=== PATIENT | female | born 2000 | race Caucasian/White ===

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

== ENCOUNTER → 2020-01-14 12:27 | Outpatient (CLI) | payer OTHER, SELFPAY ==
[2020-01-14 13:03] LABS: Bacteria Urine None Seen
[2020-01-14 13:35] LABS: Appearance Urine UA CLEAR; Bilirubin Urine UA NEGATIVE (NEGATIVE); Color Urine UA YELLOW; Glucose Urine UA NEGATIVE (Negative); Ketones Urine UA NEGATIVE (NEGATIVE); Leukocyte Esterase Urine UA NEGATIVE (NEGATIVE); Nitrite Urine UA NEGATIVE (Negative); Occult Blood Urine UA TRACE-INTACT (Negative); Protein Urine UA NEGATIVE (Negative); Specific Gravity Urine UA <=1.005 (1.000-1.035); Urobilinogen Urine UA 0.2 E.U./dL (0.2)
[2020-01-14 13:37] LABS: pH Urine UA 6.5 (4.5-8.0)
[2020-01-14 13:59] LABS: Culture Indicated Urine Cult Not Indicated; RBC Urine 0-1/HPF (0-5/HPF); Squamous Epithelial Cell Urine 0-1 /HPF (0-5/HPF); WBC Urine 1-5/HPF (0-5/HPF)
== END ==
PROVIDERS: PCP Family Medicine; Referring Provider Family Medicine; Visit Provider Family Medicine
DX: R30.0 Dysuria (principal); R35.0 Frequency of micturition; R39.15 Urgency of urination
CPT/HCPCS: 81001

== ENCOUNTER → 2020-02-05 12:36 | Outpatient (CLI) | payer OTHER, SELFPAY | PROVIDERS: PCP Family Medicine; Visit Provider Family Medicine | DX: R30.0 Dysuria (principal) | CPT/HCPCS: 87086 ==

== ENCOUNTER → 2020-10-05 10:09 | Outpatient (CLI) | payer OTHER, SELFPAY ==
[2020-10-05 10:56] LABS: Add Manual Diff / Slide Review NO; Basophils Absolute Auto 0 /uL (0-100); Basophils Percent Auto 0.7 % (0-2); Eosinophils Absolute Auto 100 /uL (0-450); Hematocrit 36.6 % (36-46); Hemoglobin 12.4 g/dL (12.0-16.0); Lymphocytes Absolute Auto 1600 /uL (1100-4500); Lymphocytes Percent Auto 23.9 % (25-40); Mean Corpuscular HGB Conc 33.8 % (30-36); Mean Corpuscular Hemoglobin 30.4 PG (26-34); Monocytes Absolute Auto 400 /uL (0-900); Monocytes Percent Auto 6.3 % (3-14); Neutrophils Absolute Auto 4600 /uL (1500-7000); Neutrophils Percent Auto 68.1 % (50-75); Platelet Count 210 X10^3/uL (150-400); Red Blood Cell Count 4.07 X10^6/uL (4.0-5.2); Red Cell Distribution Width 12.4 % (11.6-14.8); White Blood Cell Count 6.8 X10^3/uL (4.5-11.0)
[2020-10-05 10:59] LABS: Appearance Urine UA CLEAR; Bilirubin Urine UA NEGATIVE (NEGATIVE); Color Urine UA YELLOW; Glucose Urine UA NEGATIVE (Negative); Ketones Urine UA NEGATIVE (NEGATIVE); Leukocyte Esterase Urine UA NEGATIVE (NEGATIVE); Nitrite Urine UA NEGATIVE (Negative); Occult Blood Urine UA TRACE-INTACT (Negative); Protein Urine UA NEGATIVE (Negative); Specific Gravity Urine UA >=1.030 (1.000-1.035); Urobilinogen Urine UA 0.2 E.U./dL (0.2)
[2020-10-05 16:28] LABS: HIV 1 & 2 Ab/Ag 4th Gen Combo NEGATIVE (NEGATIVE); Hep C Virus Ab w/Reflex Quant NEGATIVE s/c (NEGATIVE); Hepatitis B Surface Antigen NEGATIVE s/c (NEGATIVE); Rubella Antibody IgG 23.5 IU/mL (>15)
[2020-10-06 09:23] LABS: RPR Screen Non Reactive (Non Reactive); Varicella IgG Antibody 556 index (Immune >165)
== END ==
PROVIDERS: PCP Family Medicine; Referring Provider Family Medicine; Visit Provider Family Medicine
DX: Z34.81 Encounter for supervision of other normal pregnancy, first trimester (principal)
CPT/HCPCS: 36415; 80055; 81003; 86787; 86803; 86850; 86900; 86901; 87077; 87086; 87147; 87389

== ENCOUNTER → 2020-10-20 16:42 | Outpatient (CLI) | payer OTHER, SELFPAY | PROVIDERS: PCP Family Medicine; Referring Provider Family Medicine; Visit Provider Family Medicine | DX: Z34.90 Encounter for supervision of normal pregnancy, unspecified, unspecified trimester (principal) | CPT/HCPCS: 87086 ==

== ENCOUNTER → 2020-11-27 10:17 | Outpatient (CLI) | payer OTHER, SELFPAY ==
[2020-12-01 20:03] LABS: AFP, Serum 35.5 ng/mL (.); Calc Gestational Age EDD (.); Estriol, Free 1.02 ng/mL (.); Inhibin A, Dimeric 226.64 pg/mL (.); Inhibin A, MoM 1.32 (.); Maternal Ethnicity Caucasian (.); Maternal Weight 133 lbs (.); Number of Fetuses No (.); OSBR Risk 1 IN 10000 (.); Results Report (.); Test Results *Screen Negative* (.); hCG, MoM 1.56 (.); hCG, Serum 69606 mIU/mL (.)
== END ==
PROVIDERS: PCP Family Medicine; Referring Provider Family Medicine; Visit Provider Family Medicine
DX: Z34.90 Encounter for supervision of normal pregnancy, unspecified, unspecified trimester (principal)
CPT/HCPCS: 36415; 82105; 82677; 84702; 86336

== ENCOUNTER → 2020-12-18 12:12 | Outpatient (CLI) | payer OTHER, SELFPAY ==
--- NOTE | 2020-12-18 12:13 | DI.US.S_ITS ---
PROCEDURE: US OB >= 14 WEEKS FETUS INDICATIONS: anatomy screening OUTSIDE/PRIOR DATING DATA: Last menstrual period (LMP): 08/08/2020. LMP-based estimated date of delivery (MARS): 05/15/2021 . First dating scan (date and location): 12/10/2020 . Estimated date of delivery (MARS) from first dating scan: 05/14/2021 . TECHNIQUE: Real-time scanning was performed of the fetus, with image documentation and biometric measurements. Endovaginal scanning: No COMPARISON: None. FINDINGS: General: A single living intrauterine gestation is present. Presentation: Variable. Placenta: Placental position is anterior , without previa. Amniotic fluid index: 153 cm, normal range is 5-24 cm. heart rate: 3.6 beats per minute. Maternal cervical canal: 3.6 cm long. Normal lower limit is 2.5 cm. biometrics: Biparietal diameter: 19 weeks 2 days Head circumference: 18 weeks 4 days Abdominal circumference: 18 weeks 6 days Femur length: 19 weeks Estimated gestational age from initial scan: not applicable. Composite gestational age from present scan: 19 weeks Estimated weight and percentile: 263 g; 48th percentile Measurement variability for biometric dating: +/- 7 days from 14 weeks to 15 weeks 6 days gestation, +/- 10 days from 16 weeks to 21 weeks 6 days gestation, +/- 2 weeks from 22 weeks to 27 weeks 6 days gestation, +/- 3 weeks for 28 weeks gestation or later. weight reference: 4500 g or EFW >90/95% is considered macrosomia or large for gestational age. EFW <10% is small for gestational age. EFW 5% or less is considered intra-uterine growth restriction. Anatomic survey: Neuro: Ventricles are non-dilated at less than 10 mm. Cisterna magna is normal at 3-11 mm. Cerebellum is normal in size and morphology. Small choroid plexus cyst. Nuchal skin fold: Normal at less than 6 mm between 14-21 weeks gestational age. Face: Nose and lips, facial profile are normal. Spine: No evidence for spina bifida. Heart: 4-chambered heart is present, with normal ventricular outflow tracts. Diaphragm: Diaphragm is intact. Stomach: Left-sided stomach is present. Kidneys: No hydronephrosis. Normal is less than 5 mm in 2nd trimester, less than 7 mm in 3rd trimester. Cord: 3-vessel cord has orthotopic insertion. Bladder: Normal in size. Extremities: All 4 extremities identified. IMPRESSION: 1. 19 week 0 day single living IUP. 2. Small choroid plexus cyst; otherwise normal anatomic survey. Dictated by: Spike MCGILL Interpreted: Zhane Chatman MD on 12/18/2020 at 14:58 Transcribed by: VARSHA on 12/23/2020 at 15:55 Approved by: Ata Vasques M.D. on 12/23/2020 at 16:56
== END ==
PROVIDERS: PCP Family Medicine; Referring Provider Family Medicine; Visit Provider Family Medicine
DX: Z36.89 Encounter for other specified antenatal screening (principal); Z3A.19 19 weeks gestation of pregnancy
CPT/HCPCS: 76811

== ENCOUNTER → 2021-02-19 12:08 | Outpatient (CLI) | payer OTHER, SELFPAY ==
[2021-02-19 14:11] LABS: Add Manual Diff / Slide Review NO; Basophils Absolute Auto 0 /uL (0-100); Basophils Percent Auto 0.2 % (0-2); Eosinophils Absolute Auto 100 /uL (0-450); Eosinophils Percent Auto 0.9 % (2-4); Hematocrit 33.2 % (36-46); Hemoglobin 11.3 g/dL (12.0-16.0); Lymphocytes Absolute Auto 1400 /uL (1100-4500); Lymphocytes Percent Auto 16.4 % (25-40); Mean Corpuscular HGB Conc 34.1 % (30-36); Mean Corpuscular Hemoglobin 31.4 PG (26-34); Mean Corpuscular Volume 92.1 fL (80-100); Monocytes Absolute Auto 500 /uL (0-900); Monocytes Percent Auto 5.3 % (3-14); Neutrophils Absolute Auto 6500 /uL (1500-7000); Neutrophils Percent Auto 77.2 % (50-75); Platelet Count 185 X10^3/uL (150-400); Red Blood Cell Count 3.61 X10^6/uL (4.0-5.2); Red Cell Distribution Width 12.7 % (11.6-14.8); White Blood Cell Count 8.4 X10^3/uL (4.5-11.0)
[2021-02-19 14:30] LABS: GTT (PREG) 1 Hour PP 50gm Dose 136 mg/dL (76-139)
== END ==
PROVIDERS: PCP Family Medicine; Referring Provider Family Medicine; Visit Provider Family Medicine
DX: Z34.90 Encounter for supervision of normal pregnancy, unspecified, unspecified trimester (principal)
CPT/HCPCS: 36415; 82950; 85025

== ENCOUNTER 2021-04-22 17:55 | Outpatient (CLI) | payer OTHER, SELFPAY ==
--- NOTE | 2021-04-22 18:39 | P.TNLD_ITS ---
Visit Information Visit Information Date of evaluation: 04/22/21 Primary OB Provider: Carly Law On-call OB Provider: Alejandra Walters Reason for Evaluation: Yes pre-term labor Comments/Additional reasons for admission: 20YO @36wks6 days here for evaluation of low back pain. Has been feeling pain come and go since waking with it at 0500 this morning. +FM. No vaginal bleeding or leaking of fluid. Routine care with . GBS positive. Vital Signs Vital Signs: BP: 118/71mmHg, HR 75bpm, T 36.7C Temoral [facility] Medical History Adopted Anxiety No chronic problems Scoliosis Shoulder pain, bilateral (~12/2019) Surgical History [place] teeth extracted (~2018) Family History Mother Alcoholic Heavy smoker Liver problem Grandfather Diabetes mellitus Family/Other Cancer Grandmother Diabetes mellitus Social History marital status: household members: spouse lives independently: Yes caregiver/support person: No housing: house pets and animals: Yes (X 2 Dogs: safe/aware. 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 ) current occupational exposures/hazards: No Previous occupational history: animal caregiver/Day care special sonya needs: No seatbelt use: always do you feel safe at home: Yes Smoking Status: Never smoker second hand exposure: No alcohol intake: never substance use type: does not use during the past year weight has: remained stable well-balanced diet: daily or most days daily servings fruits/ve or more times/day caffeine: No eating out: rarely or never Type(s) of exercise: regular exercise (Gym workouts, treadmill x 30 min, 3-4 days a week. ) and resistance training frequency: 3-4 times per week duration: 30-45 minutes/day Review of Systems Review of Systems ROS: Yes All systems reviewed with the patient and are negative except as otherwise documented Exam Vital Signs (past 8 hours): see above Presentation: vertex Other: 1.5cm/50%/-2, per RN Evaluation Evaluation Baseline heart rate: 135 Variability: Moderate (11-25) monitor accelerations: Present Monitor Decelerations: Absent Contraction Frequency (minutes): 4 Uterine Contraction Intensity: Mild Category of Tracing: Reactive Status: Category l Cervical dilation (cm): 1.5 Cervical effacement (%): 50 station: -2 Diagnosis, Plan/Disposition Final Diagnosis (1) False labor before 37 completed weeks of gestation: Status: Acute Plan/Disposition Plan: Counseled on contractions with explanation that what she is feeling in her back are mild uterine contractions. Reassurance given for late outcomes. Recommend warm bath and time at home. Encouraged her to call and come back if contractions worsen or persist and she is unable to sleep. Routine Labor precautions reviewed. OB Disposition: home
== END 2021-04-22 18:53 | disposition home or self-care (01) ==
LOC: LABOR 18:50 → OB 04-23 08:54
PROVIDERS: PCP Family Medicine; Referring Provider Obstetrics & Gynecology; Visit Provider Obstetrics & Gynecology
DX: O47.03 False labor before 37 completed weeks of gestation, third trimester (principal); Z3A.37 37 weeks gestation of pregnancy
CPT/HCPCS: 59025; G0378; G0379

== ENCOUNTER 2021-05-15 10:30 | Outpatient (CLI) | payer OTHER, SELFPAY | END 2021-05-15 11:35 | disposition home or self-care (01) | LOC: OB 05-17 09:20 | PROVIDERS: PCP Family Medicine; Referring Provider Family Medicine; Visit Provider Family Medicine | DX: O47.1 False labor at or after 37 completed weeks of gestation (principal); O48.0 Post-term pregnancy; Z3A.40 40 weeks gestation of pregnancy | CPT/HCPCS: 59025; G0378; G0379 ==

== ENCOUNTER 2021-05-17 14:36 | Observation (INO) | payer OTHER, SELFPAY ==
--- NOTE | 2021-05-17 15:46 | PM.OBTRLD ---
Visit Information Visit Information Date of evaluation: 05/17/21 Primary OB Provider: Carly Law Reason for Evaluation: Yes rule out labor Comments/Additional reasons for admission: 20yo at 40w3d here due to regular contractions. Pt reports contractions starting last night, increasing in intensity this afternoon again. Now every 5 minutes. No LOF or vaginal bleeding. She is feeling her baby move regulalry. [facility] Medical History (Updated 05/17/21 @ 15:51 by Carly Law MD) Adopted Anxiety Scoliosis Shoulder pain, bilateral (~12/2019) Surgical History (Updated 04/27/21 @ 09:55 by Carly Law MD) [place] teeth extracted (~2018) Family History Mother Alcoholic Heavy smoker Liver problem Grandfather Diabetes mellitus Family/Other Cancer Grandmother Diabetes mellitus Social History marital status: household members: spouse lives independently: Yes caregiver/support person: No housing: house pets and animals: Yes (X 2 Dogs: safe/aware. 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 ) and resistance training frequency: 3-4 times per week duration: 30-45 minutes/day Evaluation Evaluation Baseline heart rate: 120 Variability: Moderate (11-25) monitor accelerations: Present Monitor Decelerations: Absent Contraction Frequency (minutes): 5 Category of Tracing: Reactive Cervical dilation (cm): 4 Cervical effacement (%): 90 station: -1 Diagnosis, Plan/Disposition Final Diagnosis (1) Labor, prolonged latent phase: Status: Acute Plan/Disposition Plan: 20yo at 40w3d here for contractions. Significant cervical change since 2 days ago, but none since clinic a few hours ago. Appears to be in prolonged latent phase. Discussed with patient staying for longer monitoring vs going home, prefers to go home. Stable for d/c home with return precautions discussed. OB Disposition: home
== END 2021-05-17 16:02 | disposition home or self-care (01) ==
PROVIDERS: Admitting Provider Family Medicine; PCP Family Medicine; Referring Provider Family Medicine; Visit Provider Family Medicine
DX: O63.0 Prolonged first stage (of labor) (principal)
CPT/HCPCS: 59025; G0378; G0379

== ENCOUNTER 2021-05-17 19:16 | Inpatient (IN) | payer OTHER, SELFPAY ==
[2021-05-17] MEDS: LACTATED RINGERS 1,000 ML 100 ML IV (20:35)
[2021-05-17] MEDS: PENICILLIN G POTASSIUM 5,000,000 UNIT in DEXTROSE 5% IN WATER 250 ML IV (20:40)
[2021-05-17 21:17] LABS: Add Manual Diff / Slide Review NO; Basophils Absolute Auto 100 /uL (0-100); Basophils Percent Auto 0.3 % (0-2); Eosinophils Absolute Auto 0 /uL (0-450); Eosinophils Percent Auto 0.1 % (2-4); Hematocrit 37.8 % (36-46); Hemoglobin 12.8 g/dL (12.0-16.0); Lymphocytes Absolute Auto 1200 /uL (1100-4500); Lymphocytes Percent Auto 6.9 % (25-40); Mean Corpuscular Volume 91.2 fL (80-100); Monocytes Absolute Auto 700 /uL (0-900); Monocytes Percent Auto 3.9 % (3-14); Neutrophils Absolute Auto 15000 /uL (1500-7000); Neutrophils Percent Auto 88.8 % (50-75); Platelet Count 214 X10^3/uL (150-400); Red Blood Cell Count 4.15 X10^6/uL (4.0-5.2); Red Cell Distribution Width 12.9 % (11.6-14.8); White Blood Cell Count 16.9 X10^3/uL (4.5-11.0)
[2021-05-17 21:22] VITALS: BP 138/81
--- NOTE | 2021-05-17 22:02 | PM.AN.REGBLK ---
Regional Block Pre-procedure Procedure: Continuous Lumbar Epidural for L&D Attending OB provider: Carly Law PMH/ROS narrative: term labor, no complications ASA Class: II Labs: Hct 37.8 % (36-46) 05/17/21 21:08 Plt Count 214 X10^3/uL (150-400) 05/17/21 21:08 Medications: Current Medications Generic Name Dose Route Start Last Admin Trade Name Freq PRN Reason Stop Dose Admin Calcium Carbonate 1,000 mg 05/17/21 20:17 Calcium Carbonate 500 Mg Tab PO Q2HR PRN Dyspepsia Carboprost Tromethamine 250 mcg 05/17/21 20:17 Carboprost 250 Mcg/Ml Ampul IM Q90M PRN Bleeding Diphenhydramine HCl 25 mg 05/17/21 21:22 Diphenhydramine 50 Mg/Ml Vial IV Q10M PRN Pruritis Fentanyl 50 mcg 05/17/21 20:17 Fentanyl 100 Mcg/2 Ml Inj IV Q1H PRN Pain, Moderate (4-6) Penicillin G Potassium 3,000,000 unit in 50 mls @ 100 mls/hr 05/18/21 00:00 Penicillin G Potassium IV Q4H JAYESH Lactated Ringer's 1,000 mls @ 100 mls/hr 05/17/21 20:30 Lactated Ringers IV CONT JAYESH Oxytocin/Lactated Ringer's 30 unit in 500 mls @ 200 mls/hr 05/17/21 20:17 Oxytocin Premix IV CONT PRN Bleeding Protocol Oxytocin/Lactated Ringer's 30 unit in 500 mls @ 3 mls/hr 05/17/21 20:30 Oxytocin Premix IV TITRATE JAYESH Protocol 3 MILLIUNIT/MIN Tranexamic Acid 1,000 mg/ 100 mls @ 200 mls/hr 05/17/21 20:17 Sodium Chloride IV NOW PRN Bleeding FENT 2MCG/ML BUPIV 0.125% EPI 200 mcg in 100 mls @ 6 mls/hr 05/17/21 21:30 Fentanyl/Bupiv/Ns 2mcg/Ml - 0.125% EPIDURAL CONT JAYESH Methylergonovine Maleate 0.2 mg 05/17/21 20:17 Methylergonovine 0.2 Mg/Ml Vial IM NOW PRN Bleeding Methylergonovine Maleate 0.2 mg 05/17/21 20:17 Methylergonovine 0.2 Mg Tablet PO Q6HR PRN Heavy Bleeding Misoprostol 800 mcg 05/17/21 20:17 Misoprostol 200 Mcg Tablet HI NOW PRN Bleeding Misoprostol 1,000 mcg 05/17/21 20:17 Misoprostol 200 Mcg Tablet HI NOW PRN Bleeding Misoprostol 400 mcg 05/17/21 20:17 Misoprostol 200 Mcg Tablet SL NOW PRN Bleeding Nalbuphine HCl 2.5 mg 05/17/21 21:22 Nalbuphine 20 Mg/Ml Ampul IV Q10M PRN Pruritis Naloxone HCl 0.2 mg 05/17/21 20:17 Naloxone 0.4 Mg/Ml Vial IV Q2MIN PRN Opiate Reversal Ondansetron HCl 4 mg 05/17/21 20:17 Ondansetron 4 Mg/2 Ml Inj IV Q4HR PRN Nausea And Vomiting Oxytocin 10 unit 05/17/21 20:17 Oxytocin 10 Unit/Ml Vial IM NOW PRN Bleeding Allergies: Allergies Allergy/AdvReac Type Severity Reaction Status Date / Time No Known Drug Allergies Allergy Verified 02/24/20 13:24 Procedure Insertion date: 05/17/21 Insertion time: 21:36 Prep/Local: betadine x3 and 1% lidocaine Interspace: L3-4 Patient position: sitting Needle: 18 gauge Hustead (CSE: 27g Pencan through Hustead, clear CSF, 1mL 0.25% bupiv) JULIA at (cm): 4 Catheter placed at SKIN (cm): 10 Catheter in SPACE (cm): 6 Insertion: No CSF, No Blood, No Paresthesia with insertion, No Paresthesia with injection and No Test dose reaction Initial Medications TEST DOSE time: 21:39 TEST DOSE: 1.5% lidocaine with epinephrine 1:200k (mL): 3 BOLUS DOSE time: 21:52 BOLUS DOSE (mL): 3 BOLUS DOSE med: other (infusate) Infusion Initial rate (mL/hr): 8 Post-procedure Anesthesia time START: 21:30 Anesthesia time END: 08:09 Post-procedure Anesthesia Assessment: Yes CV function: HR/BP stable, Yes Resp function: RR/sat/airway adequate, Yes Mental status appropriate and No Anesthesia complications
[2021-05-18] MEDS: PENICILLIN G POTASSIUM 3,000,000 UNIT/50 ML FROZ.PIGGY 100 UNIT IV ×2 (01:40→05:44)
[2021-05-18] MEDS: FENT 2MCG/ML BUPIV 0.125% EPI 200 MCG/100 ML PLAST..BAG 6 MCG EPIDURAL (03:05)
[2021-05-18 03:56] LABS: COVID19 - ADMIT (NP swab/PCR) Negative (Negative)
[2021-05-18] MEDS: OXYTOCIN PREMIX 30 UNIT/500 ML PLAST..BAG 200 UNIT IV (08:11)
[2021-05-18] MEDS: miSOPROStoL 200 MCG TABLET 1000 MCG PR (08:19)
[2021-05-18] MEDS: METHYLERGONOVINE 0.2 MG/ML VIAL IM (08:20)
[2021-05-18] MEDS: CARBOPROST 250 MCG/ML AMPUL IM (08:23)
[2021-05-18] MEDS: DIPHENOXYLATE/ATROP 2.5/0.025 TABLET 2 EACH PO (09:42)
[2021-05-18] MEDS: CEFAZOLIN 1 GM VIAL 2 GM IV (09:42)
[2021-05-18] MEDS: CALCIUM CARBONATE 500 MG TAB 1000 MG PO (09:42)
[2021-05-18] MEDS: LANOLIN OINT 7 GM 1 APPLIC TOP ×2 (10:12→21:54)
[2021-05-18] MEDS: DERMOPLAST SPRAY 20% 60 ML 1 SPRAY TOP ×2 (10:12→21:53)
[2021-05-18] MEDS: PRENATAL VIT,CALC/IRON/FOLIC 1 TABLET 1 TAB PO (10:12)
[2021-05-18] MEDS: IBUPROFEN 600 MG TABLET PO ×3 (10:12→22:21)
[2021-05-18] MEDS: ACETAMINOPHEN 325 MG TABLET 650 MG PO ×2 (14:18→22:20)
--- NOTE | 2021-05-18 14:22 | P.HPOB_ITS ---
OB HPI Date/Time Date of admission: 05/17/21 Date Patient Seen: 05/18/21 Time Patient Seen: 07:30 History of Present Condition Chief complaint: CONTRACTIONS : 1 Para: 0 Estimated Date of Delivery: 05/14/21 Estimated Gestational Age (weeks): 40w4d Narrative: Nicki Ambrose is a 20 year old at 40w4d here with regular painful contractions. Pt reports contractions now 5 minutes apart. No vaginal bleeding or LOF. She is feeling her baby move regularly. The pt had no complications with her . Overnight, the pt progressed with SROM of clear fluid. Currently fully dilated and ready to push. History of Present care: good care, initiated at week # (7) and pounds weight gain (38) Dating criteria: LMP confirmed by 1st trimester US Ultrasounds: normal 1st trimester US and normal mid trimester US Obstetrical complications: none Medical complications: none Preadmission Labs Blood type: O (+) positive -: Antibody screen: negative, GBS status: positive, HBsAG: negative, HIV: negative and RPR/VDLR: negative -: Rubella: immune and Varicella: immune HCT: 33.2 HCAB: negative Quad screen: Normal 1 hr GTT: 136 Evaluation Evaluation Baseline heart rate: 130 Variability: Moderate (11-25) monitor accelerations: Present Monitor Decelerations: Variable (intermittent) Contraction Frequency (minutes): 4 Status: Category ll Cervical dilation (cm): 10 Cervical effacement (%): 100 station: +3 PFSH Medical History (Updated 05/17/21 @ 15:51 by Carly Law MD) Adopted Anxiety Scoliosis Shoulder pain, bilateral (~12/2019) Surgical History (Updated 04/27/21 @ 09:55 by Carly Law MD) [place] teeth extracted (~2018) Family History Mother Alcoholic Heavy smoker Liver problem Grandfather Diabetes mellitus Family/Other Cancer Grandmother Diabetes mellitus Social History marital status: household members: spouse lives independently: Yes caregiver/support person: No housing: house pets and animals: Yes (X 2 Dogs: safe/aware. 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 ) and resistance training frequency: 3-4 times per week duration: 30-45 minutes/day Meds Home Medications and Allergies Home Medications Medication Instructions Recorded Confirmed Type prenat.vits,maritza,[id number] 1 tab PO DAILY 10/01/20 05/18/21 History Allergies Allergy/AdvReac Type Severity Reaction Status Date / Time No Known Drug Allergies Allergy Verified 02/24/20 13:24 Exam Const General: cooperative, healthy appearing and comfortable Orientation: alert, awake and oriented x3 Resp Effort & Inspection: normal respiratory effort Auscultation: clear to auscultation bilaterally Cardio Rate: regular rate Rhythm: regular rhythm Heart Sounds: S1 normal, S2 normal and no murmurs GI Inspection: non-distended Palpation: soft and No tender Other: gravid Presentation: vertex Extrem General: no clubbing, cyanosis or edema Objective Labs Result Diagrams: 05/17/21 21:08 Labs: Laboratory Results - last 24 hr 05/17/21 05/17/21 05/18/21 21:08 21:08 02:55 WBC 16.9 H RBC 4.15 Hgb 12.8 Hct 37.8 MCV 91.2 MCH 31.0 MCHC 34.0 RDW 12.9 Plt Count 214 Neut % (Auto) 88.8 H Lymph % (Auto) 6.9 L [place] % (Auto) 3.9 Eos % (Auto) 0.1 L Baso % (Auto) 0.3 Neut # (Auto) 01128 H Lymph # (Auto) 1200 [place] # (Auto) 700 Eos # (Auto) 0 Baso # (Auto) 100 SARS-CoV-2 (PCR) Negative Blood Type O Positive Antibody Screen Negative Assessment and Plan Assessment and Plan Assessment and Plan narrative: 20yo at 40w4d here in active labor. GBS positive, received adequate GBS prophylaxis with penicillin already. Rh negative. SROM with clear fluid. - Expectant management, anticipate - GBS positive, continue penicillin prophylaxis - FHT reassuring - Epidural in place for pain control
--- NOTE | 2021-05-18 16:43 | PM.OBPRVD ---
Labor & Delivery Delivery date: 05/18/21 Intrapartal Events: None Cervical ripening method: none Induction method: none Delivery monitor: external FHT Route of delivery: Episiotomy description: None L&D Laceration Description: Labial Delivery repair: chromic Estimated blood loss (mL): 1,000 Anesthesia Type: Epidural Complications: hemorrhage Narrative: PROCEDURE: at 40w4d presented in active labor and was admitted to Labor and Delivery. The patient progressed through the 1st stage over 15 hours. Pain was controlled with an epidural. She had SROM with clear fluid present. The patient progressed through the 2nd stage over 30 minutes and delivered a viable female infant with APGARs 8/9 at 7:59am via without complications. Terminal meconium was noted after delivery. The perineum and vagina were inspected with left labial laceration repaired with 2-O Chromic. Pitocin was to be started for active management of the third stage of labor. The pt had significant vaginal bleeding after delivery. It was initially controlled with bimanual massage, but the uterus became atonic again after massage was stopped. The pt was given Methergine and rectal cytotec. There was some improvement in tone, with ongoing bimanual massage, but it would not maintain. Hemabate was then given, and the tone improved. After the bleeding stopped, it was noted that the pitocin had not actually been initiated through the IV, due to malfunction of the pump. It was then initiated. The pts bleeding remained appropriate. PREPROCEDURE DIAGNOSIS: Intrauterine at 40w4d GBS positive RH negative POSTPROCEDURE DIAGNOSIS: Intrauterine at 40w4d, delivered Same as preprocedure hemorrhage due to uterine atony Baby 1: Infant gender: Female Presentation: vertex Position: Left Occiput Anterior Placenta delivery description: Spontaneous Cord Vessel Description: 3 Vessels score (1 min): 8 score (5 min): 9 weight: 7 lb 8.813 oz Plan for aftercare: Routine care
[2021-05-18] MEDS: OXYCODONE IR 5 MG TABLET PO (22:22)
[2021-05-19] MEDS: OXYCODONE IR 5 MG TABLET PO (03:45)
--- NOTE | 2021-05-19 08:14 | PM.OBDS.1 ---
Discharge Providers Provider Date of admission: 05/17/21 19:16 Discharge Date: 05/19/21 Primary care physician: Carly Law MD Consults: 05/19/21 08:50 Consult to Supplemental Nurse Routine Comment: Discharge provider: Carly Law MD Summary Hospital Course Date Patient Seen: 05/19/21 Time Patient Seen: 08:00 Diagnoses: 40w4d gestation GBS positive Rh positive Hospital Course: The patient presented in active labor. She received an epidural for pain control. She received adequate GBS prophylaxis with penicillin. She progressed to complete without complications, and had a of a viable baby girl on 05/18/21 at 7:59am. A left labial laceration was repaired. The pt had a hemorrhage that was controlled with methergine, cytotec, hemabate, and pitocin along with prolonged bimanual massage. , there were no additional complications. At the time of discharge she was voiding, ambulating, and passing flatus without difficulty. Her lochia was decreasing appropriately. Her pain was well controlled. She was with good latch. She will f/u for her 6wk check. Peripartum Data Infant Delivery Method: Natural Vaginal Laceration Description: Labial Episiotomy description: None Procedures: Spontaneous vaginal delivery complications: uterine atony 1: Gender: Female Disposition of : home Status at Discharge Cognitive/behavioral status at discharge: oriented Functional status at discharge: independent ambulation Overall status at discharge: patient is progressing back to baseline Time Spent with Patient Time attestation: Total time spent providing and/or coordinating discharge services: Objective Labs Result Diagrams: 05/19/21 08:58 Exam Narrative Exam Narrative: Gen: NAD, sitting comfortably in bed, appears well CV: RRR, no murmurs Resp: clear to auscultation bilaterally Abd: soft, appropriately tender, fundus firm and below the umbilicus, nondistended Ext: no edema Discharge Plan Discharge Plan Patient Disposition: Home Discharge orders & Medications Prescriptions: Continued prenat.vits,maritza,[id number] Tablet 1 tab PO DAILY RF: 0 Follow up/Referrals: Carly Law MD [Primary Care Provider] - 6 Weeks (Appointment with on Saturday, June 30 at 10:00 am) Diet/Activity/Treatments Diet: Diet as Tolerated and Regular Skin/Wound/Dressing Care Report to your healthcare provider any signs of infection, such as:: chills, fever, increased pain and unusual drainage Visit Report/Discharge Packet Instructions: DI for Labor and Delivery, Vaginal Visit Report Forms: Patient Portal/API, Stroke Signs & Symptoms Discharge Data Primary Care Provider: Carly Law
[2021-05-19 09:11] LABS: Add Manual Diff / Slide Review NO; Basophils Absolute Auto 100 /uL (0-100); Basophils Percent Auto 0.3 % (0-2); Eosinophils Absolute Auto 100 /uL (0-450); Eosinophils Percent Auto 0.6 % (2-4); Hematocrit 32.2 % (36-46); Hemoglobin 10.9 g/dL (12.0-16.0); Lymphocytes Absolute Auto 2800 /uL (1100-4500); Lymphocytes Percent Auto 17.7 % (25-40); Mean Corpuscular HGB Conc 33.8 % (30-36); Mean Corpuscular Hemoglobin 31.3 PG (26-34); Mean Corpuscular Volume 92.4 fL (80-100); Monocytes Absolute Auto 700 /uL (0-900); Monocytes Percent Auto 4.1 % (3-14); Neutrophils Absolute Auto 12300 /uL (1500-7000); Neutrophils Percent Auto 77.3 % (50-75); Platelet Count 195 X10^3/uL (150-400); Red Blood Cell Count 3.49 X10^6/uL (4.0-5.2); Red Cell Distribution Width 13.1 % (11.6-14.8)
[2021-05-19] MEDS: IBUPROFEN 600 MG TABLET PO (09:11)
[2021-05-19] MEDS: PRENATAL VIT,CALC/IRON/FOLIC 1 TABLET 1 TAB PO (09:11)
[2021-05-19] MEDS: ACETAMINOPHEN 325 MG TABLET 650 MG PO (09:12)
[2021-05-19 10:25] VITALS: BP 98/54; PULSE 75; RESP 16; TEMP 37
== END 2021-05-19 14:21 | disposition home or self-care (01) | DRG 806 ==
PROVIDERS: Admitting Provider Obstetrics & Gynecology; PCP Family Medicine; Referring Provider Obstetrics & Gynecology; Visit Provider Obstetrics & Gynecology
DX: O48.0 Post-term pregnancy (principal); O72.0 Third-stage hemorrhage; Z37.0 Single live birth; O63.0 Prolonged first stage (of labor); O99.824 Streptococcus B carrier state complicating childbirth; O42.02 Full-term premature rupture of membranes, onset of labor within 24 hours of rupture; Z3A.40 40 weeks gestation of pregnancy; O77.0 Labor and delivery complicated by meconium in amniotic fluid; O70.0 First degree perineal laceration during delivery; Z20.822 Contact with and (suspected) exposure to COVID-19
CPT/HCPCS: 01967; 36415; 59025; 59050; 59400; 85025; 86850; 86900; 86901; 87635; C9803; G0378; G0379; J0690; J2210; J2540; J2590; S0191

== ENCOUNTER 2021-06-04 21:33 | Emergency (ER) | payer OTHER, SELFPAY ==
[2021-06-04 21:47] VITALS: BP 106/58; PULSE 70; RESP 20; TEMP 36.7; O2SAT 98; BMI 25.6
[2021-06-05 01:01] VITALS: BP 118/81; PULSE 60; RESP 17; O2SAT 99
[2021-06-05 01:03] LABS: Add Manual Diff / Slide Review NO; Basophils Absolute Auto 100 /uL (0-100); Basophils Percent Auto 1.1 % (0-2); Eosinophils Absolute Auto 200 /uL (0-450); Eosinophils Percent Auto 3.1 % (2-4); Hematocrit 39.9 % (36-46); Hemoglobin 13.2 g/dL (12.0-16.0); Lymphocytes Absolute Auto 1800 /uL (1100-4500); Mean Corpuscular Hemoglobin 30.5 PG (26-34); Mean Corpuscular Volume 92.3 fL (80-100); Monocytes Absolute Auto 400 /uL (0-900); Monocytes Percent Auto 5.4 % (3-14); Neutrophils Absolute Auto 4500 /uL (1500-7000); Neutrophils Percent Auto 64.4 % (50-75); Platelet Count 352 X10^3/uL (150-400); Red Blood Cell Count 4.33 X10^6/uL (4.0-5.2); Red Cell Distribution Width 12.3 % (11.6-14.8)
[2021-06-05 01:09] LABS: Alanine Aminotransferase 22 IU/L (<35); Albumin 4.7 g/dL (3.5-5.0); Albumin Globulin Ratio 1.6 (1.0-2.8); Alkaline Phosphatase 109 U/L (38-126); Aspartate Aminotransferase 25 IU/L (14-36); BUN Creatinine Ratio 19.7 (6-22); Bilirubin Total 0.5 mg/dL (0.2-1.3); Blood Urea Nitrogen 12 mg/dL (7-17); Calcium 9.9 mg/dL (8.4-10.2); Carbon Dioxide 26 mmol/L (22-32); Chloride 105 mmol/L (98-107); Estimated Glomerular Filt Rate > 60.0 mL/min (>60); Glucose 98 mg/dL (70-100); HEMOLYSIS 21 (0-50); Lipase 30 U/L (23-300); Potassium 4.2 mmol/L (3.4-5.1); Sodium 139 mmol/L (137-145); Total Protein 7.7 g/dL (6.3-8.2)
--- NOTE | 2021-06-05 03:04 | ED.GENADULT ---
HPI - General Adult General Chief complaint: Abdominal Pain Stated complaint: 2 WEEKS POST STOMACH PAIN Time Seen by Provider: 06/05/21 03:00 Source: patient Mode of arrival: Ambulatory Limitations: no limitations History of Present Illness HPI narrative: 20-year-old at almost 2 weeks presents with abdominal pain. She has noticed that it has been increasing over the last week at times so severe it almost feels like contractions. It is diffuse throughout her abdomen. She isn't describing dysuria or hematuria. She notes that her lochia has slowed to minimal spotting only. She has had no fevers no odors or unexpected discharge from her vagina. He is not complaining of chest pain or palpitations. She notes that she is eating and drinking well. Breast-feeding is also going well. She describes no significant headaches. Her last bowel movement was about 2 days ago, she states that this is not all that unusual for her Related Data Home Medications Medication Instructions Recorded Confirmed prenat.vits,martiza,[id number] 1 tab PO DAILY 10/01/20 05/18/21 Allergies Allergy/AdvReac Type Severity Reaction Status Date / Time No Known Drug Allergies Allergy Verified 06/04/21 21:47 Review of Systems Review of Systems Narrative: Remainder of complete review of systems is otherwise unremarkable except for that included in the HPI. Patient History Medical History Adopted Anxiety Scoliosis Shoulder pain, bilateral (~12/2019) Surgical History [place] teeth extracted (~2018) Family History Mother Alcoholic Heavy smoker Liver problem Grandfather Diabetes mellitus Family/Other Cancer Grandmother Diabetes mellitus Social History marital status: household members: spouse lives independently: Yes caregiver/support person: No housing: house pets and animals: Yes (X 2 Dogs: safe/aware. 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 ) current occupational exposures/hazards: No Previous occupational history: certified caregiver/Day care special sonya needs: No seatbelt use: always do you feel safe at home: Yes Smoking Status: Never smoker second hand exposure: No alcohol intake: never substance use type: does not use during the past year weight has: remained stable well-balanced diet: daily or most days daily servings fruits/ve or more times/day caffeine: No eating out: rarely or never Type(s) of exercise: regular exercise (Gym workouts, treadmill x 30 min, 3-4 days a week. ) and resistance training frequency: 3-4 times per week duration: 30-45 minutes/day Smoking Status: Never smoker Substance Use Type: does not use Exam Narrative Exam Narrative: General: Healthy appearing, in no acute distress. Able to give a complete and coherent history. Well-nourished well-developed HEENT: Moist mucous membranes, normal sclera with reactive pupils, Respiratory: Lungs are clear to auscultation, no wheezing no rales no rhonchi. Full and symmetrical air movement Cardiac: Regular rate and rhythm no murmurs no bruits Abdomen: Soft, nontender, good bowel tones, no flank pain Skin: Warm and dry, no rashes Neurologic: Grossly neurologically intact with no obvious asymmetries or abnormalities Extremities: No trauma, well perfused Psych: Cooperative, appropriate insight and affect Initial Vital Signs Initial Vital Signs: Vital Signs Temperature 98.0 F 06/04/21 21:47 Pulse Rate 70 06/04/21 21:47 Respiratory Rate 20 06/04/21 21:47 Blood Pressure 106/58 L 06/04/21 21:47 Pulse Oximetry 98 06/04/21 21:47 Course Orders Ordered: ED Orders 06/04/21 22:14 Complete Blood Count AUTO DIFF Stat Comprehensive Metabolic Panel Stat Lipase Stat Discontinued Medications Magnesium Citrate (Magnesium Citrate 300 Ml Solution) 300 ml PO NOW ONE Stop: 06/05/21 03:16 Vital Signs Vital signs: Vital Signs - 8 hr 06/04/21 21:47 06/05/21 01:01 Temperature 98.0 F Pulse Rate 70 60 Respiratory Rate 20 17 Blood Pressure 106/58 L 118/81 Pulse Oximetry 98 99 Medical Decision Making Lab Data Result diagrams: 06/05/21 00:49 06/05/21 00:49 Labs: Lab Results 06/05/21 06/05/21 Range/Units 00:49 00:49 WBC 7.0 (4.5-11.0) X10^3/uL RBC 4.33 (4.0-5.2) X10^6/uL Hgb 13.2 (12.0-16.0) g/dL Hct 39.9 (36-46) % MCV 92.3 (80-100) fL MCH 30.5 (26-34) PG MCHC 33.0 (30-36) % RDW 12.3 (11.6-14.8) % Plt Count 352 (150-400) X10^3/uL Neut % (Auto) 64.4 (50-75) % Lymph % (Auto) 26.0 (25-40) % [place] % (Auto) 5.4 (3-14) % Eos % (Auto) 3.1 (2-4) % Baso % (Auto) 1.1 (0-2) % Neut # (Auto) 4500 (9322-6814) /uL Lymph # (Auto) 1800 (7181-1402) /uL [place] # (Auto) 400 (0-900) /uL Eos # (Auto) 200 (0-450) /uL Baso # (Auto) 100 (0-100) /uL Sodium 139 (137-145) mmol/L Potassium 4.2 (3.4-5.1) mmol/L Chloride 105 (98-107) mmol/L Carbon Dioxide 26 (22-32) mmol/L BUN 12 (7-17) mg/dL Creatinine 0.61 (0.52-1.04) mg/dL Estimated GFR > 60.0 (>60) mL/min BUN/Creatinine Ratio 19.7 (6-22) Glucose 98 (70-100) mg/dL Calcium 9.9 (8.4-10.2) mg/dL Total Bilirubin 0.5 (0.2-1.3) mg/dL AST 25 (14-36) IU/L ALT 22 (<35) IU/L Alkaline Phosphatase 109 (38-126) U/L Total Protein 7.7 (6.3-8.2) g/dL Albumin 4.7 (3.5-5.0) g/dL Globulin 3.0 (1.7-4.1) g/dL Albumin/Globulin Ratio 1.6 (1.0-2.8) Lipase 30 (23-300) U/L Urine Dip Bedside Urine Glucose Negative Bedside Urine Bilirubin - Negative Bedside Urine Ketone - Negative Urine Specific [place] 1.030 Bedside Urine Occult Blood - Negative Bedside Urine pH 6.0 Bedside Urine Protein - Negative Bedside Urine Urobilinogen - Negative Bedside Urine Nitrite - Negative Bedside Urine Leukocytes - Negative Esterase Point of care testing: Urine Dip Bedside Urine Glucose Negative Bedside Urine Bilirubin - Negative Bedside Urine Ketone - Negative Urine Specific [place] 1.030 Bedside Urine Occult Blood - Negative Bedside Urine pH 6.0 Bedside Urine Protein - Negative Bedside Urine Urobilinogen - Negative Bedside Urine Nitrite - Negative Bedside Urine Leukocytes - Negative Esterase MDM Narrative Medical decision making narrative: 20-year-old 2 weeks . Intermittent colicky type abdominal pain. She does not note that breast-feeding makes it worse. She is not having abnormal vaginal discharge. There is no signs of infection or urinary tract infection. At this point most likely diagnosis is constipation. Given the fact that it has been building for a week other non related abdominal issues such as appendicitis or diverticulitis are less likely at this time. I do not suspect kidney stones. There is no sign of an acute surgical abdomen. Reviewed use of MiraLax to help clean out her bowels. She does have a follow-up appointment for her baby with there family physician in 2 days. She will review her abdominal pain at that time as well. At this time she is safe for discharge Discharge Plan Departure Patient Disposition: Home Clinical Impression: Abdominal pain Qualifiers: Abdominal location: generalized Qualified Code(s): R10.84 - Generalized abdominal pain Instructions: DI for Constipation Activity Restrictions/Additional Instructions: Thank you for coming in today Your blood work is very reassuring. There is no evidence of infection, kidney issues, bladder infection, complications with retained products of conception in your uterus or any life-threatening issues that would require hospitalization. Given that description of your pain and the timing, I suspect that constipation is playing a role in this. I sent you home with a bottle of magnesium citrate, this will full water into your colon and help you clean out your colon completely. If you find that your still having increasing pain after you have had a large bowel movement, then please talk with your primary care doctor. If your developing fevers or new symptoms, please feel free to return to the ER. Prescriptions: No Action prenat.vits,maritza,sks-siyk-bvqmi Tablet 1 tab PO DAILY RF: 0 Referrals: Carly Law MD [Primary Care Provider] -
[2021-06-05] MEDS: MAGNESIUM CITRATE 300 ML SOLUTION PO (03:22)
== END 2021-06-05 03:30 | disposition home or self-care (01) ==
PROVIDERS: Emergency Provider Emergency Medicine; PCP Family Medicine
DX: R10.9 Unspecified abdominal pain (principal)
CPT/HCPCS: 36415; 80053; 81003; 83690; 85025; 99283

== ENCOUNTER 2021-06-06 13:33 | Emergency (ER) | payer OTHER, SELFPAY ==
[2021-06-06 13:36] VITALS: BP 113/71; PULSE 82; RESP 20; TEMP 36.6; O2SAT 98
[2021-06-06] MEDS: ONDANSETRON 4 MG/2 ML INJ (13:51)
[2021-06-06 13:57] LABS: Add Manual Diff / Slide Review NO; Basophils Absolute Auto 100 /uL (0-100); Basophils Percent Auto 0.9 % (0-2); Eosinophils Absolute Auto 100 /uL (0-450); Eosinophils Percent Auto 2.2 % (2-4); Hematocrit 41.8 % (36-46); Lymphocytes Absolute Auto 1400 /uL (1100-4500); Lymphocytes Percent Auto 23.4 % (25-40); Mean Corpuscular HGB Conc 33.4 % (30-36); Mean Corpuscular Volume 92.9 fL (80-100); Monocytes Absolute Auto 300 /uL (0-900); Neutrophils Absolute Auto 4200 /uL (1500-7000); Neutrophils Percent Auto 68.5 % (50-75); Platelet Count 375 X10^3/uL (150-400); Red Cell Distribution Width 12.7 % (11.6-14.8); White Blood Cell Count 6.1 X10^3/uL (4.5-11.0)
[2021-06-06 14:13] LABS: Alanine Aminotransferase 28 IU/L (<35); Albumin 5.2 g/dL (3.5-5.0); Albumin Globulin Ratio 1.7 (1.0-2.8); Alkaline Phosphatase 122 U/L (38-126); Aspartate Aminotransferase 34 IU/L (14-36); BUN Creatinine Ratio 14.9 (6-22); Bilirubin Total 0.7 mg/dL (0.2-1.3); Blood Urea Nitrogen 10 mg/dL (7-17); Carbon Dioxide 19 mmol/L (22-32); Chloride 107 mmol/L (98-107); Estimated Glomerular Filt Rate > 60.0 mL/min (>60); Globulin 3.1 g/dL (1.7-4.1); Glucose 94 mg/dL (70-100); HEMOLYSIS 19 (0-50); Lipase 37 U/L (23-300); Potassium 4.8 mmol/L (3.4-5.1); Sodium 140 mmol/L (137-145); Total Protein 8.3 g/dL (6.3-8.2)
--- NOTE | 2021-06-06 15:16 | ED_ITS ---
HPI - Abdominal Pain General Chief Complaint: Abdominal Pain Stated Complaint: bad stomach pain Time Seen by Provider: 06/06/21 15:06 Source: patient Mode of arrival: Ambulatory Limitations: no limitations History of Present Illness HPI narrative: This is a 20-year-old female who comes to the emergency department with complaint of abdominal pain. Patient started having symptoms on Monday, continued to worsen and patient was seen here on for ride a with mostly left upper quadrant pain but sometimes also on the right. Patient has been afebrile, no chills. No nasal congestion or cold cough congestive type symptoms no chest pain or shortness of breath she has developed nausea today but has not had any vomiting. Patient was somewhat constipated given magnesium citrate and had significant amount of stool out and does not feel constipated any longer. She denies dysuria urgency or frequency. She is still having some vaginal bleeding as she is 3 weeks but has not appreciated any discharge or odor that is new or different. She denies any lower abdominal discomfort. Patient denies any back or flank pain. She is breast. She is otherwise healthy with no major medical issues. She had a vaginal delivery without complications. She has not any known allergies or prior surgeries. She has not had similar symptoms in the past. She has tried Tylenol and ibuprofen at home with minimal improvement. She finds herself more comfortable if she is curled up and finds herself more uncomfortable laying flat, backwards are when she is fully extended or when she is jumping or moving. Related Data Home Medications Medication Instructions Recorded Confirmed prenat.vits,maritza,[id number] 1 tab PO DAILY 10/01/20 05/18/21 Previous Rx's Medication Instructions Recorded ketorolac 10 mg tablet 10 mg PO Q6H PRN #10 tab 06/06/21 Allergies Allergy/AdvReac Type Severity Reaction Status Date / Time No Known Drug Allergies Allergy Verified 06/04/21 21:47 Review of Systems Review of Systems ROS Unobtainable: All systems reviewed & are unremarkable except as noted in HPI and below Patient History Medical History Adopted Anxiety Scoliosis Shoulder pain, bilateral (~12/2019) Surgical History [place] teeth extracted (~2018) Family History Mother Alcoholic Heavy smoker Liver problem Grandfather Diabetes mellitus Family/Other Cancer Grandmother Diabetes mellitus Social History marital status: household members: spouse lives independently: Yes caregiver/support person: No housing: house pets and animals: Yes (X 2 Dogs: safe/aware. 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 ) current occupational exposures/hazards: No Previous occupational history: caretaker resort/Day care special sonya needs: No seatbelt use: always do you feel safe at home: Yes Smoking Status: Never smoker second hand exposure: No alcohol intake: never substance use type: does not use during the past year weight has: remained stable well-balanced diet: daily or most days daily servings fruits/ve or more times/day caffeine: No eating out: rarely or never Type(s) of exercise: regular exercise (Gym workouts, treadmill x 30 min, 3-4 days a week. ) and resistance training frequency: 3-4 times per week duration: 30-45 minutes/day Smoking Status: Never smoker Substance Use Type: does not use Exam Narrative Exam Narrative: GENERAL: Alert and oriented x three, female in mild distress. HEENT: Head normocephalic, atraumatic, EOMI, pupils reactive, face symmetric, m oist mucous membranes NECK: Supple, full range of motion CARDIOVASCULAR: Regular rate and rhythm without murmurs, rubs or gallops. RESPIRATORY: Breath sounds equal bilaterally, no wheezes rales or rhonchi. ABDOMEN: Soft, mild left upper quadrant tenderness slightly on the right. No lower abdominal tenderness. Bowel sounds all 4 quadrants. No guarding or rebound, rigidity, no mass. Nondistended. : No CVA tenderness EXTREMITIES: Normal range of motion, no clubbing or edema. Neurovascularly intact NEUROLOGICAL: Cranial nerves II through XII grossly intact. Moving all extremities SKIN: Warm, dry, no petechiae, no rashes or lesions. Initial Vital Signs Initial Vital Signs: Vital Signs Temperature 97.8 F 06/06/21 13:36 Pulse Rate 82 06/06/21 13:36 Respiratory Rate 20 06/06/21 13:36 Blood Pressure 113/71 06/06/21 13:36 Pulse Oximetry 98 06/06/21 13:36 Course Orders Ordered: ED Orders 06/06/21 13:25 Urine Culture Stat 06/06/21 13:45 Complete Blood Count AUTO DIFF Stat Comprehensive Metabolic Panel Stat Lipase Stat Urine Microscopic Stat 06/06/21 15:37 CT abdomen pelvis w con Stat Discontinued Medications Ketorolac Tromethamine (Ketorolac 30 Mg/Ml Vial) 30 mg IV NOW ONE Stop: 06/06/21 15:38 Last Admin: 06/06/21 15:45 Dose: 30 mg Documented by: PAT Reevaluation(s) Reevaluation #1: Patient is feeling more comfortable she is sitting comfortably on the bed. We reviewed her labs and findings. We discussed doing a pelvic exam to evaluate for uterine infection but patient politely defers and she is really more tender in her upper abdomen than lower. We did review her urine shows some uric acid but do not see any obvious stones she does not have flank pain or changes as consistent with a kidney stone. She is supposed to follow-up with primary care tomorrow with her daughter and asked that she share her recent symptoms with her physician, her next follow-up is in 3 weeks. Time: 17:04 Vital Signs Vital signs: Vital Signs - 8 hr 06/06/21 13:36 06/06/21 15:55 Temperature 97.8 F Pulse Rate 82 61 Respiratory Rate 20 16 Blood Pressure 113/71 113/64 Pulse Oximetry 98 100 MDM - Abdominal Pain Lab Data Result diagrams: 06/06/21 13:45 06/06/21 13:45 Labs: Lab Results 06/06/21 06/06/21 06/06/21 Range/Units 13:45 13:45 13:45 WBC 6.1 (4.5-11.0) X10^3/uL RBC 4.50 (4.0-5.2) X10^6/uL Hgb 14.0 (12.0-16.0) g/dL Hct 41.8 (36-46) % MCV 92.9 (80-100) fL MCH 31.0 (26-34) PG MCHC 33.4 (30-36) % RDW 12.7 (11.6-14.8) % Plt Count 375 (150-400) X10^3/uL Neut % (Auto) 68.5 (50-75) % Lymph % (Auto) 23.4 L (25-40) % [place] % (Auto) 5.0 (3-14) % Eos % (Auto) 2.2 (2-4) % Baso % (Auto) 0.9 (0-2) % Neut # (Auto) 4200 (6221-6846) /uL Lymph # (Auto) 1400 (4545-0533) /uL [place] # (Auto) 300 (0-900) /uL Eos # (Auto) 100 (0-450) /uL Baso # (Auto) 100 (0-100) /uL Sodium 140 (137-145) mmol/L Potassium 4.8 (3.4-5.1) mmol/L Chloride 107 (98-107) mmol/L Carbon Dioxide 19 L (22-32) mmol/L BUN 10 (7-17) mg/dL Creatinine 0.67 (0.52-1.04) mg/dL Estimated GFR > 60.0 (>60) mL/min BUN/Creatinine Ratio 14.9 (6-22) Glucose 94 (70-100) mg/dL Calcium 10.0 (8.4-10.2) mg/dL Total Bilirubin 0.7 (0.2-1.3) mg/dL AST 34 (14-36) IU/L ALT 28 (<35) IU/L Alkaline Phosphatase 122 (38-126) U/L Total Protein 8.3 H (6.3-8.2) g/dL Albumin 5.2 H (3.5-5.0) g/dL Globulin 3.1 (1.7-4.1) g/dL Albumin/Globulin Ratio 1.7 (1.0-2.8) Lipase 37 (23-300) U/L Urine RBC 0-1/hpf (0-5/HPF) Urine WBC None seen (0-5/HPF) Uric Acid Crystals Moderate H (None) Amorphous Sediment 4+ Urine Bacteria Many (>30) H (None) Ur Culture Indicated? Culture not indicate Point of care testing: Point of Care Testing Test Results Negative Urine Dip Bedside Urine Glucose Negative Bedside Urine Bilirubin - Negative Bedside Urine Ketone - Negative Urine Specific [place] 1.030 Bedside Urine Occult Blood - Negative Bedside Urine pH 5.0 Bedside Urine Protein +/- 15 Bedside Urine Urobilinogen - Negative Bedside Urine Nitrite - Negative Bedside Urine Leukocytes - Negative Esterase Imaging Data CT scan - abdomen/pelvis: Radiologist's Impression: Launch?[address] [address] [address] Scan Report Signed Patient: Nicki Ambrose MR#: [id number] : 2000 Acct:[id number] Age/Sex: 20 / F Date of Service: 06/06/21 Loc: ED Accession Number: [id number] ?? Procedure: CT abdomen pelvis w con Ordering Provider: Megan Mendieta D.O. PROCEDURE:? CT ABDOMEN PELVIS W CON ? INDICATIONS:? 20-year-old female with left upper quadrant pain ? TECHNIQUE:? After the administration of intravenous contrast, axial sections acquired from the lung bases to the pubic symphysis.? Coronal and sagittal reformats were performed.? For radiation dose reduction, the following was used:? automated exposure control, adjustment of mA and/or kV according to patient size.? ? COMPARISON:? None. ? FINDINGS: ? Lower thorax: The lung bases are clear.? Heart size normal.? No hiatal hernia.? Small bibasilar pleural effusions noted. ? Liver:? Normal in size and attenuation. No contour deformity present. ? Biliary system:? No calcified cholelithiasis or pericholecystic inflammation. No intra or extrahepatic bile duct dilatation. ? Pancreas:? Unremarkable without mass or inflammation evident. ? Spleen:? Normal in size and density. ? Adrenals:? Normal morphology and density. ? Reproductive system:? uterus ? Urinary system:? Normal renal size and attenuation. No renal calculi, hydronephrosis, or solid mass present.? Urinary bladder unremarkable. ? Gastrointestinal system:? The bowel is unremarkable without evidence of bowel obstruction or inflammation. The stomach appears unremarkable. ? Appendix:? Normal appendix identified.? No evidence of appendicitis. ? Peritoneal spaces:? No mesenteric or retroperitoneal adenopathy.? No free air.? No free fluid.? ? Vasculature:? The IVC, aorta and iliac vasculature are unremarkable. ? Abdominal wall:? Abdominal wall intact without evidence of ventral or inguinal hernias. ? Musculoskeletal:? Normal bone mineralization.? No acute fractures.? ? IMPRESSION: ? 1. uterus.? Otherwise unremarkable CT abdomen and pelvis. ? ? Approved by: Justus Castro M.D. on 06/06/2021 at 15:30? [facility] Narrative Medical decision making narrative: 20-year-old female comes with complaint of abdominal pain who is 3 weeks . She has had upper pain. Particularly on the left. She was seen here several days ago told she is likely constipated had magnesium citrate and had quite a bit of stool after this. This was on Monday yesterday. She has not any more bowel movements since then and but has not had any other obstructive type symptoms. She does have some mild nausea today. She denies back or flank pain, no urinary symptoms she is still having some vaginal bleeding as she is 3 weeks but has not had any other discharge, foul odor or changes. She is breast-feeding but having no chest pain. Patient labs are otherwise reassuring. Urine shows uric acid crystals b ut she does not have flank pain. We discussed imaging options and CT abdomen pelvis was obtained she has changes typical for a uterus but no other acute changes. On repeat examination she is really not tender in her lower abdomen but we did discuss pelvic exam. At this time was deferred by patient but we did discuss she needs a pelvic exam she continues to have symptoms. Patient does not have official follow-up tomorrow but is seeing her primary care provider for her infant recheck and was asked to discuss with her provider. Patient feels comfortable with this plan. She found Toradol helpful so plan to do a short course of this as Tylenol and ibuprofen have been minimally helpful. Discharge Plan Departure Patient Disposition: Home Clinical Impression: Abdominal pain Instructions: DI for Abdominal Pain-Adult Activity Restrictions/Additional Instructions: Follow up with your physician for recheck. Talk with your physician tomorrow at your babies recheck. If you continue to have abdominal pain a pelvic exam would be appropriate to evaluate for infection of the uterus. You may take Tylenol up to a 1000 mg every 8 hours as needed. This is an adequate you can add Toradol which is similar to ibuprofen, every 6 hours as needed. Do not take this for more than 5 days. Prescription sent to [facility] in [place] Please return for fevers, new or worsening abdominal, back or flank pain, persistent vomiting, black or bloody stools a few having vaginal odor, discharge or new discoloration or other new or concerning symptoms. Prescriptions: New ketorolac 10 mg tablet 10 mg PO Q6H PRN (Reason: pain) Qty: 10 RF: 0 No Action prenat.vits,maritza,[id number] Tablet 1 tab PO DAILY RF: 0 Referrals: Carly Law MD [Primary Care Provider] -
--- NOTE | 2021-06-06 15:37 | DI.CT.S_ITS ---
PROCEDURE: CT ABDOMEN PELVIS W CON INDICATIONS: 20-year-old female with left upper quadrant pain TECHNIQUE: After the administration of intravenous contrast, axial sections acquired from the lung bases to the pubic symphysis. Coronal and sagittal reformats were performed. For radiation dose reduction, the following was used: automated exposure control, adjustment of mA and/or kV according to patient size. COMPARISON: None. FINDINGS: Lower thorax: The lung bases are clear. Heart size normal. No hiatal hernia. Small bibasilar pleural effusions noted. Liver: Normal in size and attenuation. No contour deformity present. Biliary system: No calcified cholelithiasis or pericholecystic inflammation. No intra or extrahepatic bile duct dilatation. Pancreas: Unremarkable without mass or inflammation evident. Spleen: Normal in size and density. Adrenals: Normal morphology and density. Reproductive system: uterus Urinary system: Normal renal size and attenuation. No renal calculi, hydronephrosis, or solid mass present. Urinary bladder unremarkable. Gastrointestinal system: The bowel is unremarkable without evidence of bowel obstruction or inflammation. The stomach appears unremarkable. Appendix: Normal appendix identified. No evidence of appendicitis. Peritoneal spaces: No mesenteric or retroperitoneal adenopathy. No free air. No free fluid. Vasculature: The IVC, aorta and iliac vasculature are unremarkable. Abdominal wall: Abdominal wall intact without evidence of ventral or inguinal hernias. Musculoskeletal: Normal bone mineralization. No acute fractures. IMPRESSION: 1. uterus. Otherwise unremarkable CT abdomen and pelvis. Approved by: Justus Castro M.D. on 06/06/2021 at 15:30
[2021-06-06] MEDS: KETOROLAC 30 MG/ML VIAL IV (15:45)
[2021-06-06 15:55] VITALS: BP 113/64; PULSE 61; RESP 16; O2SAT 100
[2021-06-06 15:55] LABS: RBC Urine 0-1/HPF (0-5/HPF)
[2021-06-06 15:56] LABS: Amorphous Sediment Urine 4+; Bacteria Urine Many (>30); Uric Acid Crystals Urine Moderate; WBC Urine None Seen (0-5/HPF)
== END 2021-06-06 17:15 | disposition home or self-care (01) ==
PROVIDERS: Emergency Provider Emergency Medicine; PCP Family Medicine
DX: R10.12 Left upper quadrant pain (principal); R11.0 Nausea
CPT/HCPCS: 36415; 74177; 80053; 81003; 81015; 81025; 83690; 85025; 87086; 96374; 99284; J1885; J2405; Q9967

== ENCOUNTER → 2022-01-25 16:46 | Outpatient (CLI) | payer OTHER, SELFPAY ==
--- NOTE | 2022-01-25 16:47 | DI.US.S_ITS ---
PROCEDURE: US OB <= 14 WEEKS FETUS INDICATIONS: dating and viability OUTSIDE/PRIOR DATING DATA: Last menstrual period (LMP): 11/01/2021. LMP-based estimated date of delivery (MARS): 08/08/2022. First dating scan (date and location): 01/25/2022. Estimated date of delivery (MARS) from first dating scan: 07/29/2022. TECHNIQUE: Real-time scanning was performed of the fetus and maternal pelvic organs, with image documentation. COMPARISON: [facility], OB <= 14 WEEKS FETUS, 11/19/2019, 10:58. FINDINGS: Crouch living intrauterine . heart rate 153 bpm. Posterior placenta. [place]-rump length: 7.5 cm, 13 weeks 4 days Biometric measurements: BPD: 2.4 cm, 14 weeks 0 days HC: 8.6 cm, 13 weeks 6 days AC: 6.8 cm, 13 weeks 3 days FL: 1 cm, 13 weeks 1 day. Abdomen, kidneys, cord insertion, bladder, extremities are unremarkable. Maternal organs: Ovaries are within normal limits. IMPRESSION: Crouch living intrauterine at 13 weeks 4 days based on today's crown rump length. heart rate 153 bpm. We strive to produce accurate, complete, and clear reports of imaging services. To assist us in improving patient care, this report was composed using standard report templates and voice recognition software. Therefore, it may contain abnormal punctuation, insertions and/or omissions. Occasional wrong-word or sound-alike substitutions may occur. Though we review the report and make efforts to correct it, we do recommend that the report be read carefully in proper context to recognize any text inaccuracies. Dictated by: Aldo Alvarado M.D. on 01/26/2022 at 11:01 Approved by: Aldo Alvarado M.D. on 01/26/2022 at 11:06
== END ==
PROVIDERS: PCP Family Medicine; Referring Provider Family Medicine; Visit Provider Family Medicine
DX: Z34.81 Encounter for supervision of other normal pregnancy, first trimester (principal); Z3A.13 13 weeks gestation of pregnancy
CPT/HCPCS: 76801

== ENCOUNTER → 2022-02-02 12:06 | Outpatient (CLI) | payer OTHER, SELFPAY ==
[2022-02-02 13:02] LABS: Add Manual Diff / Slide Review NO; Basophils Absolute Auto 0 /uL (0-100); Basophils Percent Auto 0.3 % (0-2); Eosinophils Absolute Auto 100 /uL (0-450); Eosinophils Percent Auto 1.7 % (2-4); Hematocrit 34.4 % (36-46); Lymphocytes Absolute Auto 1400 /uL (1100-4500); Lymphocytes Percent Auto 22.4 % (25-40); Mean Corpuscular Hemoglobin 30.9 PG (26-34); Mean Corpuscular Volume 88.4 fL (80-100); Monocytes Absolute Auto 400 /uL (0-900); Monocytes Percent Auto 5.9 % (3-14); Neutrophils Absolute Auto 4400 /uL (1500-7000); Neutrophils Percent Auto 69.7 % (50-75); Platelet Count 184 X10^3/uL (150-400); Red Blood Cell Count 3.89 X10^6/uL (4.0-5.2); Red Cell Distribution Width 13.2 % (11.6-14.8); White Blood Cell Count 6.3 X10^3/uL (4.5-11.0)
[2022-02-02 13:03] LABS: Appearance Urine UA CLEAR; Bilirubin Urine UA NEGATIVE (NEGATIVE); Color Urine UA YELLOW; Glucose Urine UA NEGATIVE (Negative); Ketones Urine UA NEGATIVE (NEGATIVE); Leukocyte Esterase Urine UA NEGATIVE (NEGATIVE); Nitrite Urine UA NEGATIVE (Negative); Occult Blood Urine UA NEGATIVE (Negative); Protein Urine UA NEGATIVE (Negative); Specific Gravity Urine UA 1.025 (1.000-1.035); Urobilinogen Urine UA 0.2 E.U./dL (0.2)
[2022-02-02 13:51] LABS: Hepatitis B Surface Antigen NEGATIVE s/c (NEGATIVE); Rubella Antibody IgG 15.3 IU/mL (>15)
[2022-02-02 14:07] LABS: HIV 1 & 2 Ab/Ag 4th Gen Combo NEGATIVE (NEGATIVE); Hep C Virus Ab w/Reflex Quant NEGATIVE s/c (NEGATIVE)
[2022-02-03 06:34] LABS: RPR Screen Non Reactive (Non Reactive)
[2022-02-03 12:29] LABS: Varicella IgG Antibody 389 index (Immune >165)
== END ==
PROVIDERS: PCP Family Medicine; Referring Provider Family Medicine; Visit Provider Family Medicine
DX: Z34.81 Encounter for supervision of other normal pregnancy, first trimester (principal)
CPT/HCPCS: 36415; 80055; 81003; 86787; 86803; 86850; 86900; 86901; 87389

== ENCOUNTER → 2022-02-25 16:03 | Outpatient (CLI) | payer OTHER, SELFPAY ==
[2022-03-01 20:40] LABS: AFP, Serum 58.5 ng/mL (.); Estriol, Free 1.32 ng/mL (.); Inhibin A, Dimeric 118.19 pg/mL (.); Inhibin A, MoM 0.72 (.); Maternal Ethnicity Caucasian (.); Maternal Weight 134 lbs (.); Number of Fetuses No (.); OSBR Risk 1 IN 6704 (.); Results Report (.); Test Results *Screen Negative* (.); hCG, MoM 0.58 (.); hCG, Serum 18693 mIU/mL (.)
== END ==
PROVIDERS: PCP Family Medicine; Referring Provider Family Medicine; Visit Provider Family Medicine
DX: Z34.91 Encounter for supervision of normal pregnancy, unspecified, first trimester (principal); Z3A.18 18 weeks gestation of pregnancy
CPT/HCPCS: 36415; 82105; 82677; 84702; 86336

== ENCOUNTER → 2022-03-11 15:09 | Outpatient (CLI) | payer OTHER, SELFPAY ==
--- NOTE | 2022-03-11 15:10 | DI.US.S_ITS ---
PROCEDURE: US OB >= 14 WEEKS FETUS INDICATIONS: Anatomy Screen OUTSIDE/PRIOR DATING DATA: Last menstrual period (LMP): 11/01/2021. LMP-based estimated date of delivery (MARS): 08/08/2022. First dating scan (date and location): 01/25/2022. Estimated date of delivery (MARS) from first dating scan: 07/29/2022. TECHNIQUE: Real-time scanning was performed of the fetus, with image documentation and biometric measurements. Endovaginal scanning: None COMPARISON: [facility], OB >= 14 WEEKS FETUS, 12/18/2020, 11:32. FINDINGS: General: A single living intrauterine gestation is present. Presentation: Vertex. Placenta: Placental position is anterior , without previa. Amniotic fluid index: 16.0 cm, normal range is 5-24 cm. Single deepest vertical pocket is 5.1 cm. heart rate: 152 beats per minute. Maternal cervical canal: 4.2 cm long. Normal lower limit is 2.5 cm. biometrics: Biparietal diameter: 4.6 cm, 19 week 5 day Head circumference: 16.9 cm, 19 week 4 day Abdominal circumference: 15.4 cm, 20 week 4 day Femur length: 3.2 cm, 19 week 6 day Clinically estimated gestational age: 20 week 0 day Composite gestational age from present scan: 20 week 0 day Estimated weight and percentile: 335 g, 54th percentile Anatomic survey: Neuro: Ventricles are non-dilated at less than 10 mm. Cisterna magna is normal at 3-11 mm. Cerebellum is normal in size and morphology. Nuchal skin fold: Normal at less than 6 mm between 14-21 weeks gestational age. Face: Nose and lips, facial profile are normal. Spine: No evidence for spina bifida. Heart: 4-chambered heart is present, with normal ventricular outflow tracts. Diaphragm: Diaphragm is intact. Stomach: Left-sided stomach is present. Kidneys: No hydronephrosis. Normal is less than 5 mm in 2nd trimester, less than 7 mm in 3rd trimester. Cord: 3-vessel cord has orthotopic insertion. Bladder: Normal in size. Extremities: All 4 extremities identified. IMPRESSION: Single live intrauterine consistent with a 20 week 0 day gestation by current ultrasound Anatomic survey within normal limits. Approved by: Justus Castro M.D. on 03/11/2022 at 17:55
== END ==
PROVIDERS: PCP Family Medicine; Referring Provider Family Medicine; Visit Provider Family Medicine
DX: Z34.82 Encounter for supervision of other normal pregnancy, second trimester (principal); Z3A.20 20 weeks gestation of pregnancy
CPT/HCPCS: 76811

== ENCOUNTER 2022-04-19 21:05 | Emergency (ER) | payer OTHER, SELFPAY ==
--- NOTE | 2022-04-19 21:34 | DI.RAD.S_ITS ---
PROCEDURE: XR FINGER LT MIN 2V INDICATIONS: crush injury TECHNIQUE: AP hand, 2 views of the 4th digit acquired. COMPARISON: None. FINDINGS: Bones: No fractures or dislocations. No suspicious bony lesions. Soft tissues: There are 2 punctate densities projecting over the ulnar sided soft tissues of the 4th digit which appear external. IMPRESSION: 1. No fractures or dislocation. 2. Small punctate densities within the ulnar sided soft tissues of the 4th digit appear external. Dictated by: Ángel Gutierrez M.D. on 04/19/2022 at 23:58 Approved by: Ángel Gutierrez M.D. on 04/19/2022 at 23:59
--- NOTE | 2022-04-20 01:07 | ED_ITS ---
HPI - Extremity Injury (Upper) General Chief Complaint: Extremity Injury, Upper Stated Complaint: smashed lt ring finger Time Seen by Provider: 04/20/22 00:27 Source: patient Mode of arrival: Ambulatory History of Present Illness HPI narrative: 21-year-old female nonsmoker with noncontributory medical history presents with her in the chief complaint of an injury to her left ring finger. She states that she was reaching out when a sliding glass door smashed her left hand. Thankfully her wedding band seems to taken the majority of the force and it has been slightly crushed and is pressing on her finger, she has some superficial abrasions but is otherwise well. There is no other injury to hand, wrist, elbow or other. She denies any numbness, tingling or weakness. Related Data Home Medications Medication Instructions Recorded Confirmed prenat.vits,maritza,[id number] 1 tab PO DAILY 10/01/20 04/08/22 ferrous sulfate 325 mg (65 mg 325 mg PO DAILY 01/20/22 04/08/22 iron) tablet Allergies Allergy/AdvReac Type Severity Reaction Status Date / Time No Known Drug Allergies Allergy Verified 04/08/22 10:55 Review of Systems Review of Systems Narrative: GENERAL: Denies chills, fatigue, malaise, fever, sweats. HEENT: Denies sinus pain, ear pain, sore throat, difficulty swallowing, dizziness. RESPIRATORY: Denies dyspnea, cough, wheezing, hemoptysis, sputum. CARDIOVASCULAR: Denies chest pain, palpitations, orthopnea, edema, GASTROINTESTINAL: Denies nausea, vomiting, abdominal pain, diarrhea, constipation, melena. : Denies dysuria, frequency, incontinence, hematuria, urinary retention. MUSCULOSKELETAL: See HPI SKIN: Denies rash, skin lesions, or other NEUROLOGIC: Denies weakness, headache, numbness, change in speech, confusion, seizures, incoordination. PSYCHIATRIC: No concerning psychosocial issues. 12 point review of systems is negative except for those stated above Patient History Medical History Adopted Anxiety Heart murmur Labor, prolonged latent phase Scoliosis Shoulder pain, bilateral (~12/2019) (spontaneous vaginal delivery) Surgical History [place] teeth extracted (~2019) Family History Mother Alcoholic Heavy smoker Liver problem Grandfather Diabetes mellitus Family/Other Cancer Grandmother Diabetes mellitus Social History marital status: number of children: 1 household members: spouse and children lives independently: Yes caregiver/support person: No housing: house pets and animals: Yes (X 2 Dogs) education level: high school occupational status: previously employed current occupational exposures/hazards: No 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 needs: No seatbelt use: always water heater temp set < 120 deg: Yes working smoke detector in home: Yes fire extinguisher in home: Yes carbon monox detector in home: Yes firearms in home: No do you feel safe at home: Yes Smoking Status: Never smoker second hand exposure: No alcohol intake: never substance use type: does not use during the past year weight has: remained stable well-balanced diet: daily or most days daily servings fruits/ve or more times/day caffeine: Yes (Occasionally, aware of 200mg limit) eating out: rarely or never Type(s) of exercise: walking frequency: 3-4 times per week duration: 30-45 minutes/day Smoking Status: Never smoker Substance Use Type: does not use Exam Narrative Exam Narrative: GEN: AOx3 and in mild distress EYES: Pupils are equal, round, and reactive to light and accommodation. Extraoccular muscles are intact bilaterally. There is no subconjunctival hemorrhage or exudate. CHEST: Lungs are clear to auscultation bilaterally and free of wheezes, rales, or rhonchi. Heart rate is regular rhythm, there are no murmurs, clicks, rubs, or gallops. There is no chest wall tenderness. ABD: Abdomen is soft and nontender. There is no guarding or rebound. Bowel sounds are normal in all 4 quadrants. There is no mass or organomegaly. EXT: Full painless ROM of all extremities with no loss of sensation or strength. Very minimal swelling to dorsum of left 4th finger. Ring easily removed by nursing staff and patient has near complete resolution of pain after its removal. There is no numbness, tingling or weakness SKIN: Warm, pink, and dry. No erythema or rash Course Orders Ordered: ED Orders 04/19/22 21:34 XR finger LT min 2V Stat MDM - Extremity Injury (Upper) Imaging Data Extremity x-ray #1: Radiologist's Impression: Nicki Ambrose??21??F??2000 ? Allergy/Adv: No Known Drug Allergies (More??) Close Finger X-Ray (Signed) Ángel Gutierrez - 04/19/22 Ultrasound (Signed) Justus Castro - 03/11/22 Ultrasound (Signed) Aldo Alvarado - 01/25/22 Abdomen/Pelvis CT (Signed) Castro,Justus - 06/06/21 DI Result CC 02/22/21 DI Result CC 02/22/21 Ultrasound (Signed) Chatman,Zhane - 12/18/20 Pelvis Ultrasound (Signed) J Carlos Damon - 12/02/19 Ultrasound (Signed) J Carlos Damon - 11/19/19 [place] [address] XRay Report Signed Patient: Nicki Ambrose MR#: [id number] : 2000 Acct:[id number] Age/Sex: 21 / F Date of Service: 04/19/22 Loc: ED Accession Number: [id number] ?? Procedure: XR finger LT min 2V Ordering Provider: Austin Boyd D.O. PROCEDURE:? XR FINGER LT MIN 2V ? INDICATIONS:? crush injury ? TECHNIQUE:? AP hand, 2 views of the 4th digit acquired.? ? COMPARISON:? None. ? FINDINGS:? ? Bones:? No fractures or dislocations.? No suspicious bony lesions.? ? Soft tissues:? There are 2 punctate densities projecting over the ulnar sided soft tissues of the 4th digit which appear external. ? IMPRESSION:? ? 1. No fractures or dislocation. ? 2. Small punctate densities within the ulnar sided soft tissues of the 4th digit appear external.? ? Dictated by: Ángel Gutierrez M.D. on 04/19/2022 at 23:58 ? ? Approved by: Ángel Gutierrez M.D. on 04/19/2022 at 23:59 ? MDM Narrative Medical decision making narrative: Patient with minor crush injury to left 4th finger has very little if any symptoms after ring is removed. There is no laceration, neurovascular compromise or radiographic evidence of fracture or dislocation. X-ray notes the possibility of small punctate densities which are consistent with small metallic flexor easily brushed off. No need for further intervention. Return precautions discussed and questions answered to her apparent satisfaction Discharge Plan Departure Patient Disposition: Home Clinical Impression: Contusion of finger Instructions: DI for Contusion Activity Restrictions/Additional Instructions: *You have been diagnosed with [left 4th finger contusion. As we discussed there is no wound that would require repair and x-ray is negative for fracture] *What to do: *Please continue to take your regular medications as directed. *Please follow up with your primary care provider in 2-3 days, call for an appointment. Let them know you were seen in the Emergency Department and that we ask that you be seen in follow up. We will electronically transmit a record of today's note if your PCP is in our system *Return to Emergency Department if you should have any new, worsening or concerning symptoms, such as [fever greater than 101 F, shaking chills, worsening pain, persistent vomiting or other bothersome symptoms] Prescriptions: No Action prenat.vits,maritza,[id number]-tugyh Tablet 1 tab PO DAILY ferrous sulfate 325 mg (65 mg iron) tablet 325 mg PO DAILY Referrals: Carly Law MD [Primary Care Provider] - Visit Report Forms: Patient Portal/API
== END 2022-04-20 01:14 | disposition home or self-care (01) ==
PROVIDERS: Emergency Provider Emergency Medicine; PCP Family Medicine
DX: S60.042A Contusion of left ring finger without damage to nail, initial encounter (principal); W23.0XXA Caught, crushed, jammed, or pinched between moving objects, initial encounter
CPT/HCPCS: 73140; 99281; 99283

== ENCOUNTER → 2022-05-10 11:46 | Outpatient (CLI) | payer OTHER, SELFPAY ==
[2022-05-10 15:27] LABS: Add Manual Diff / Slide Review NO; Basophils Absolute Auto 0 /uL (0-100); Basophils Percent Auto 0.3 % (0-2); Eosinophils Absolute Auto 100 /uL (0-450); Eosinophils Percent Auto 0.9 % (2-4); Hematocrit 34.7 % (36-46); Hemoglobin 11.9 g/dL (12.0-16.0); Lymphocytes Absolute Auto 1300 /uL (1100-4500); Lymphocytes Percent Auto 16.5 % (25-40); Mean Corpuscular HGB Conc 34.2 % (30-36); Mean Corpuscular Hemoglobin 31.7 PG (26-34); Mean Corpuscular Volume 92.6 fL (80-100); Monocytes Absolute Auto 500 /uL (0-900); Monocytes Percent Auto 6.6 % (3-14); Neutrophils Absolute Auto 6200 /uL (1500-7000); Neutrophils Percent Auto 75.7 % (50-75); Platelet Count 180 X10^3/uL (150-400); Red Blood Cell Count 3.75 X10^6/uL (4.0-5.2); Red Cell Distribution Width 12.6 % (11.6-14.8); White Blood Cell Count 8.1 X10^3/uL (4.5-11.0)
[2022-05-10 15:54] LABS: GTT (PREG) 1 Hour PP 50gm Dose 71 mg/dL (76-139)
== END ==
PROVIDERS: PCP Family Medicine; Referring Provider Family Medicine; Visit Provider Family Medicine
DX: Z34.90 Encounter for supervision of normal pregnancy, unspecified, unspecified trimester (principal); Z3A.24 24 weeks gestation of pregnancy
CPT/HCPCS: 36415; 82950; 85025

== ENCOUNTER → 2022-07-05 09:53 | Outpatient (CLI) | payer OTHER, SELFPAY ==
[2022-07-06 16:20] LABS: Strep Grp B PCR NEG for Grp B Strep
== END ==
PROVIDERS: PCP Family Medicine; Visit Provider Family Medicine
DX: Z36.85 Encounter for antenatal screening for Streptococcus B (principal)
CPT/HCPCS: 87653

== ENCOUNTER 2022-07-31 17:40 | Outpatient (CLI) | payer OTHER, SELFPAY | END 2022-07-31 18:23 | disposition home or self-care (01) | LOC: LABOR 17:44 → OB 08-04 12:03 | PROVIDERS: PCP Family Medicine; Referring Provider Obstetrics & Gynecology; Visit Provider Obstetrics & Gynecology | DX: O36.8130 Decreased fetal movements, third trimester, not applicable or unspecified (principal); O48.0 Post-term pregnancy; Z3A.40 40 weeks gestation of pregnancy | CPT/HCPCS: 59025; G0378; G0379 ==

== ENCOUNTER 2022-08-02 20:59 | Inpatient (IN) | payer OTHER, SELFPAY ==
[2022-08-02 21:53] VITALS: BP 123/68
[2022-08-02] MEDS: LACTATED RINGERS 1,000 ML 100 ML IV ×2 (21:56→23:03)
[2022-08-02 22:03] LABS: Add Manual Diff / Slide Review NO; Basophils Absolute Auto 0 /uL (0-100); Basophils Percent Auto 0.3 % (0-2); Eosinophils Absolute Auto 0 /uL (0-450); Eosinophils Percent Auto 0.2 % (2-4); Hematocrit 39.4 % (36-46); Hemoglobin 13.3 g/dL (12.0-16.0); Lymphocytes Absolute Auto 1400 /uL (1100-4500); Lymphocytes Percent Auto 12.4 % (25-40); Mean Corpuscular HGB Conc 33.7 % (30-36); Mean Corpuscular Hemoglobin 30.1 PG (26-34); Mean Corpuscular Volume 89.4 fL (80-100); Monocytes Absolute Auto 800 /uL (0-900); Monocytes Percent Auto 6.9 % (3-14); Neutrophils Absolute Auto 9300 /uL (1500-7000); Neutrophils Percent Auto 80.2 % (50-75); Platelet Count 165 X10^3/uL (150-400); Red Blood Cell Count 4.41 X10^6/uL (4.0-5.2); Red Cell Distribution Width 13.4 % (11.6-14.8); White Blood Cell Count 11.6 X10^3/uL (4.5-11.0)
[2022-08-02 22:27] LABS: COVID19 -Nasal RAPID Negative (Negative)
[2022-08-02] MEDS: FENT 2MCG/ML BUPIV 0.125% EPI 200 MCG/100 ML PLAST..BAG 12 MCG EPIDURAL (22:50)
--- NOTE | 2022-08-02 23:06 | PM.OBHP.IH.1 ---
OB HPI Date/Time Date of admission: 08/02/22 Date Patient Seen: 08/02/22 Time Patient Seen: 23:06 History of Present Condition Chief complaint: observation of labor MARS Calculator Estimated Delivery Date Method Current WG Current Estimate 07/29/22 Manual 40w 4d Final AMRS - FRANKIE Other Estimates 08/08/22 LMP (Certain) 39w 1d 07/29/22 Ultrasound #1 40w 4d Estimated Gestational Age (weeks): 40w4d : 3 Para: 1 Narrative: Pt is a 21yo at 40w4d here with regular contractions. Pt reports contractions starting around 5pm, and increasing in intensity since then. She denies any LOF or vaginal bleeding. She has been feeling her baby move regularly. The pt has had no complications with her . care: good care, initiated at week # (14) and pounds weight gain (40) Dating criteria OB: based on 1st trimester US only Ultrasounds: normal 1st trimester US and normal mid trimester US Obstetrical complications: none Medical complications OB: none Preadmission Labs Last OB Lab Results: Blood Type O Positive 08/02/22 21:30 Antibody Screen Negative 08/02/22 21:30 Hematocrit 39.4 % (36-46) 08/02/22 21:30 Hemoglobin 13.3 g/dL (12.0-16.0) 08/02/22 21:30 Hepatitis B Surface Antigen Negative s/c (NEGATIVE) 02/02/22 12:31 Hepatitis C Antibody Negative s/c (NEGATIVE) 02/02/22 12:31 Rubella Antibody 15.3 IU/mL (>15) 02/02/22 12:31 Varicella-Zoster IgG Antibody 389 index (Immune >165) 02/02/22 12:31 Glucose 1 Hour 71 mg/dL (76-139) L 05/10/22 13:11 Group B Streptococcus (PCR) Neg for grp b strep 07/05/22 09:53 -: Urine: negative Genetic Screens: Quad screen: Normal External Labs -: Urine: negative Prior (ies) Past Pregnancies Del. Date GA/Weeks Labor Lgth Wt Sex Route Outcome Anesthesia Place Delv Breastfeed Preg Comp Name 11/26/19 13.0 spontaneous 05/18/21 40 15 7 lb 8 oz Female vaginal live - full term IH Still nursing as of 01/20/22 none John Delivery Date: 11/26/19 Last Updated by: Niru Guerrero R.N. Completed on its own. US clear afterwards. Delivery Date: 05/18/21 Last Updated by: Luh Zapata RN choroid plexus cyst on anatomy US, resolved spontaneously Evaluation Evaluation Baseline heart rate: 155 Variability: Moderate (11-25) monitor accelerations: Present Monitor Decelerations: Absent Contraction Frequency (minutes): 3 Uterine Contraction Intensity: Strong/Firm Status: Category l Dilation (cm): 7 Effacement (%): 90 station: -1 [facility] [place] Medical History Adopted Anxiety Heart murmur Labor, prolonged latent phase Scoliosis Shoulder pain, bilateral (~12/2019) (spontaneous vaginal delivery) Surgical History [place] teeth extracted (~2018) Family History Mother Alcoholic Heavy smoker Liver problem Grandfather Diabetes mellitus Family/Other Cancer Grandmother Diabetes mellitus Social History marital status: number of children: 1 household members: spouse and children lives independently: Yes caregiver/support person: No housing: house pets and animals: Yes (X 2 Dogs) education level: high school occupational status: previously employed current occupational exposures/hazards: No 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 needs: No seatbelt use: always water heater temp set < 120 deg: Yes working smoke detector in home: Yes fire extinguisher in home: Yes carbon monox detector in home: Yes firearms in home: No do you feel safe at home: Yes Smoking Status: Never smoker second hand exposure: No alcohol intake: never substance use type: does not use during the past year weight has: remained stable well-balanced diet: daily or most days daily servings fruits/ve or more times/day caffeine: Yes (Occasionally, aware of 200mg limit) eating out: rarely or never Type(s) of exercise: walking frequency: 3-4 times per week duration: 30-45 minutes/day Meds Home Medications and Allergies Home Medications Medication Instructions Recorded Confirmed Type prenat.vits,maritza,skk-hgui-zixcc 1 tab PO DAILY 10/01/20 08/02/22 History Double Electric Breast Pump and #1 ea 06/07/22 08/01/22 Rx supplies Allergies Allergy/AdvReac Type Severity Reaction Status Date / Time No Known Drug Allergies Allergy Verified 08/01/22 10:08 OB Exam Narrative Exam Narrative: Gen: NAD, sitting comfortably in bed, appears well CV: RRR, no murmurs Resp: clear to auscultation bilaterally Abd: soft, nontender, gravid Ext: no edema Objective Labs Result Diagrams: 08/02/22 21:30 Labs: Laboratory Results - last 24 hr 08/02/22 08/02/22 08/02/22 21:30 21:30 21:30 WBC 11.6 H RBC 4.41 Hgb 13.3 Hct 39.4 MCV 89.4 MCH 30.1 MCHC 33.7 RDW 13.4 Plt Count 165 Neut % (Auto) 80.2 H Lymph % (Auto) 12.4 L [place] % (Auto) 6.9 Eos % (Auto) 0.2 L Baso % (Auto) 0.3 Neut # (Auto) 9300 H Lymph # (Auto) 1400 [place] # (Auto) 800 Eos # (Auto) 0 Baso # (Auto) 0 SARS-CoV-2 (PCR) Negative Blood Type O Positive Antibody Screen Negative Assessment and Plan Assessment and Plan Assessment and Plan narrative: 21yo at 40w4d here in active labor. No complications with . GBS negative, Rh positive. - Expectant management, anticipate - FHT reassuring - GBS negative, no prophylaxis indicated - Epidural in place for pain control
--- NOTE | 2022-08-02 23:37 | PM.OBPNLAB ---
Date/Time Date Patient Seen: 08/02/22 Time Patient Seen: 23:37 Pain Control Pain control: epidural Pelvic Exam Dilation (cm): 8 Effacement (%): 100 station: 0 Amniotic membrane status: Ruptured Comments: After informed consent, AROM performed with clear fluid present. Contractions Monitor mode: External Contraction frequency (min): 3 Contraction intensity: Strong/Firm Status status: Category ll Heart Rate Baseline: 150 Monitor Accelerations: Present Monitor Decelerations: Variable Monitor Variability: Moderate Assessment and Plan Comments: 21yo at 40w4d here in active labor. GBS negative, Rh positive. AROM with clear fluid present. Now with variable decels. - Expectant management, anticipate - FHT Category II with variable decels -- position changes, oyxgen, fluid bolus. Pt 8-9cm but easily can stretch to complete for pushing if needed based on FHT. - Epidural in place for pain control and functioning well
[2022-08-03] MEDS: OXYTOCIN PREMIX 30 UNIT/500 ML PLAST..BAG 200 UNIT IV (00:34)
--- NOTE | 2022-08-03 00:44 | PM.OBPRVD ---
Labor & Delivery Delivery date: 08/03/22 Intrapartal Events: None Cervical ripening method: none Induction method: none Delivery augmentation: rupture of membranes Delivery monitor: external FHT Route of delivery: L&D Laceration Description: None Quantitative Blood Loss: 400 Anesthesia Type: Epidural Complications: None Narrative: PROCEDURE: at 40w4d presented in active labor and was admitted to Labor and Delivery. The patient progressed through the 1st stage over 7.5 hours. Pain was controlled with an epidural. AROM was performed with clear fluid present. The patient progressed through the 2nd stage over 32 minutes and delivered a viable female infant with APGARs 9/9 at 00:25 via without complications. The cord was cut and clamped after it stopped pulsating. The perineum and vagina were inspected with no lacerations. PREPROCEDURE DIAGNOSIS: Intrauterine at 40w4d GBS negative RH positive POSTPROCEDURE DIAGNOSIS: Intrauterine at 40w4d, delivered Same as preprocedure Ethel Baby 1: Infant gender: Female Presentation: vertex Position: Left Occiput Anterior Placenta delivery description: Spontaneous Cord Vessel Description: 3 Vessels score (1 min): 9 score (5 min): 9 weight: 7 lb 13.857 oz Plan for aftercare: Routine care
[2022-08-03] MEDS: ACETAMINOPHEN 325 MG TABLET 650 MG PO ×3 (01:34→16:20)
[2022-08-03] MEDS: IBUPROFEN 600 MG TABLET PO ×3 (01:34→16:20)
[2022-08-03] MEDS: DOCUSATE 100 MG CAPSULE PO (10:08)
[2022-08-03] MEDS: PRENATAL VIT,CALC/IRON/FOLIC 1 TABLET 1 TAB PO (10:08)
--- NOTE | 2022-08-03 17:04 | PM.OBDS.1 ---
Discharge Providers Provider Date of admission: 08/02/22 20:59 Discharge Date: 08/03/22 Primary care physician: Carly Law MD Consults: 08/04/22 00:42 Consult to Manager Of Learning Routine Comment: Discharge provider: Carly Law MD Summary Hospital Course Date Patient Seen: 08/03/22 Time Patient Seen: 17:04 Diagnoses: Intrauterine at 40w4d GBS negative RH positive Hospital Course: The pt presented in active labor. She had an epidural for pain control. AROM was performed with clear fluid present. She progressed to complete and had an of a viable baby girl without complications. , there were no complications. At the time of discharge she was voiding, ambulating, and passing flatus without difficulty. Her lochia was decreasing appropriately. Her pain was well controlled. She was with good latch. She will f/u in clinic in 6 weeks for check. She desires a Paraguard IUD for contraception. Peripartum Data Infant Delivery Method: Natural Vaginal Laceration Description: None Episiotomy description: None Procedures: Spontaneous vaginal delivery complications: none 1: Gender: Female Disposition of : home Discharge Diagnosis (1) (spontaneous vaginal delivery): Status: Acute Time Spent with Patient Time attestation: Total time spent providing and/or coordinating discharge services: Objective Labs Result Diagrams: 08/02/22 21:30 Labs: Laboratory Results - last 24 hr 08/02/22 08/02/22 08/02/22 21:30 21:30 21:30 WBC 11.6 H RBC 4.41 Hgb 13.3 Hct 39.4 MCV 89.4 MCH 30.1 MCHC 33.7 RDW 13.4 Plt Count 165 Neut % (Auto) 80.2 H Lymph % (Auto) 12.4 L [place] % (Auto) 6.9 Eos % (Auto) 0.2 L Baso % (Auto) 0.3 Neut # (Auto) 9300 H Lymph # (Auto) 1400 [place] # (Auto) 800 Eos # (Auto) 0 Baso # (Auto) 0 SARS-CoV-2 (PCR) Negative Blood Type O Positive Antibody Screen Negative Exam Narrative Exam Narrative: Gen: NAD, sitting comfortably in bed, appears well CV: RRR, no murmurs Resp: clear to auscultation bilaterally Abd: soft, appropriately tender, fundus firm and below the umbilicus, nondistended Ext: no edema Discharge Plan Discharge Plan Patient Disposition: Home Discharge orders & Medications Prescriptions: New acetaminophen 325 mg Tablet 650 mg PO Q6HR PRN (Reason: Pain, Mild (1-3)) Qty: 30 0RF docusate sodium 100 mg Capsule 100 mg PO DAILY Qty: 30 0RF ibuprofen 600 mg Tablet 600 mg PO Q6HR PRN (Reason: Pain, Mild (1-3)) Qty: 30 0RF Continued (DME) Double Electric Breast Pump and supplies See Rx Instructions .ROUTE .MEDSUPPLY Qty: 1 0RF Rx Instructions: Use daily as directed prenat.vits,maritza,[id number]-tmsui Tablet 1 tab PO DAILY Follow up/Referrals: Carly Law MD [Primary Care Provider] - (Appointment with on at 10:30 AM.) Diet/Activity/Treatments Diet: Diet as Tolerated and Regular Skin/Wound/Dressing Care Report to your healthcare provider any signs of infection, such as:: chills, fever, increased pain and unusual drainage Visit Report/Discharge Packet Instructions: DI for Labor and Delivery, Vaginal Stand Alone Forms: Patient Portal/API, Stroke Signs & Symptoms Discharge Data Primary Care Provider: Carly Law
== END 2022-08-03 21:40 | disposition home or self-care (01) | DRG 807 ==
PROVIDERS: Admitting Provider Family Medicine; PCP Family Medicine; Referring Provider Family Medicine; Visit Provider Family Medicine
DX: O76 Abnormality in fetal heart rate and rhythm complicating labor and delivery (principal); Z37.0 Single live birth; Z3A.40 40 weeks gestation of pregnancy; Z67.40 Type O blood, Rh positive; Z20.822 Contact with and (suspected) exposure to COVID-19
CPT/HCPCS: 36415; 59025; 59050; 59400; 85025; 86850; 86900; 86901; 87635; C9803; G0379; J2590